=== PATIENT | female | born 2000 | race Caucasian/White ===

== ENCOUNTER 2019-02-26 06:16 | Emergency (ER) | payer SELFPAY ==
[~2019-02-26] VITALS: Ht 172.7 cm; Wt 70.5 kg
[2019-02-26 06:25] VITALS: Ht 172.7 cm; Wt 70.5 kg
[2019-02-26] MEDS ORDERED: LOMOTIL 2.5-0.1 EAC1 PO (06:26)
[2019-02-26] MEDS ORDERED: ORAL CONTRACEPTIVE (06:27)
[2019-02-26 07:29] LABS: BASOPHILS 0.4 % (0-2); EOSINOPHILS 2.5 % (0-7); HEMATOCRIT 31.7 % (36.0-48.0); HEMOGLOBIN 10.3 g/dL (12-16); IMMATURE GRANULOCYTES 0.3 % (0-5); LYMPHOCYTES 31.7 % (15-50); MCH 27.6 pg (26.0-34.0); MCHC 32.5 g/dL (31.0-37.0); MEAN PLATELET VOLUME 9.4 fL (7.4-10.4); NEUTROPHILS 55.1 % (40-80); PLATELET COUNT 339 10x3/uL (130-400); RBC 3.73 10x6/uL (4.00-5.40); RDW 13.3 % (11.5-14.5); WBC 6.8 10x3/uL (4.8-10.8)
[2019-02-26 07:38] LABS: ALBUMIN 2.3 g/dL (3.4-5.0); ALKALINE PHOSPHATASE 72 U/L (46-116); ALT (SGPT) 11 U/L (10-68); BILIRUBIN - TOTAL 0.23 mg/dL (0.2-1.3); CALC OSMOLALITY 276 mosm/kg (275-300); CARBON DIOXIDE 27.3 mmol/L (21.0-32.0); CHLORIDE - SERUM 108 mmol/L (98-107); CREATININE - SERUM 0.8 mg/dL (0.6-1.3); GLUCOSE 100 mg/dL (74-106); POTASSIUM - SERUM 3.9 mmol/L (3.5-5.1); PROTEIN - SERUM 6.6 g/dL (6.4-8.2); SODIUM 140 mmol/L (136-145); UREA NITROGEN 7 mg/dL (7-18); eGFR NON AFRICAN AMERICAN > 90 mL/min (90-120)
[2019-02-26] MEDS ORDERED: ZOFRAN ODT4 MG/UDTAB PO (08:54)
[2019-02-26 11:08] VITALS: BP 108/55
== END 2019-02-26 10:22 | disposition home or self-care (01) ==
LOC: D.ER 06:16
PROVIDERS: Family Medicine
DX: R11.2 Nausea with vomiting, unspecified (principal); R19.7 Diarrhea, unspecified

== ENCOUNTER → 2019-03-24 15:41 | Outpatient (CLI) | payer SELFPAY ==
[2019-02-26 06:25] VITALS: BMI 23.6
[~2019-03-24 15:41] MED LIST: LOMOTIL 2.5-0.1 EAC1 PO; ORAL CONTRACEPTIVE; ZOFRAN ODT4 MG/UDTAB PO
[2019-03-27 19:08] LABS: OVA + PARASITE EXAM Final report (())
== END | disposition home or self-care (01) ==
LOC: D.LAB 15:41
PROVIDERS: ATTEND Family Medicine Adult Medicine
DX: R19.7 Diarrhea, unspecified (principal)

== ENCOUNTER → 2019-04-09 13:03 | Outpatient (CLI) | payer BC ==
[2019-02-26 06:25] VITALS: BMI 23.6
== END | disposition home or self-care (01) ==
LOC: D.LAB 13:03
PROVIDERS: ATTEND Family Medicine Adult Medicine
DX: K52.9 Noninfective gastroenteritis and colitis, unspecified (principal); A04.72 Enterocolitis due to Clostridium difficile, not specified as recurrent

== ENCOUNTER 2019-05-07 15:05 | Emergency (ER) | payer MEDICAID ==
[~2019-05-07] VITALS: Ht 172.7 cm; Wt 72.7 kg
[2019-05-07 15:34] VITALS: Ht 172.7 cm; Wt 72.7 kg
[2019-05-07 15:56] LABS: BASOPHILS 0.1 % (0-2); EOSINOPHILS 1.8 % (0-7); HEMATOCRIT 36.5 % (36.0-48.0); HEMOGLOBIN 11.7 g/dL (12-16); IMMATURE GRANULOCYTES 0.1 % (0-5); LYMPHOCYTES 20.6 % (15-50); MCH 28.5 pg (26.0-34.0); MCHC 32.1 g/dL (31.0-37.0); MEAN PLATELET VOLUME 9.3 fL (7.4-10.4); MONOCYTES 8.4 % (2-11); PLATELET COUNT 377 10x3/uL (130-400); RDW 14.6 % (11.5-14.5); WBC 8.7 10x3/uL (4.8-10.8)
[2019-05-07 16:06] LABS: CALC OSMOLALITY 274 mosm/kg (275-300); CHLORIDE - SERUM 105 mmol/L (98-107); CREATININE - SERUM 0.7 mg/dL (0.6-1.3); GLUCOSE 93 mg/dL (74-106); HCG URINE NEGATIVE (NEGATIVE); POTASSIUM - SERUM 3.5 mmol/L (3.5-5.1); SODIUM 138 mmol/L (136-145); UREA NITROGEN 9 mg/dL (7-18); eGFR NON AFRICAN AMERICAN > 90 mL/min (90-120)
[2019-05-07 16:12] LABS: ALBUMIN 3.1 g/dL (3.4-5.0); ALKALINE PHOSPHATASE 89 U/L (46-116); ALT (SGPT) 19 U/L (10-68); BILIRUBIN - TOTAL 0.24 mg/dL (0.2-1.3); PROTEIN - SERUM 8.3 g/dL (6.4-8.2)
[2019-05-07 16:14] LABS: APPEARANCE CLEAR (CLEAR); BILIRUBIN NEGATIVE (NEGATIVE); COLOR YELLOW (YELLOW); EPITHELIAL CELLS 0-5 /hpf (0-5); GLUCOSE NEGATIVE (NEGATIVE); KETONE NEGATIVE (NEGATIVE); NITRITE NEGATIVE (NEGATIVE); PROTEIN NEGATIVE (NEGATIVE); RED CELLS - URINE 0-5 /hpf (0-5); SPECIFIC GRAVITY 1.015 (1.005-1.020); UROBILINOGEN NORMAL (NORMAL); WHITE CELLS - URINE 0-5 /hpf (NEGATIVE)
[2019-05-07 16:15] LABS: BACTERIA MODERATE /hpf (NEGATIVE)
[2019-05-07 20:29] VITALS: BP 100/63
== END 2019-05-07 20:51 | disposition home or self-care (01) ==
LOC: D.ER 15:05
PROVIDERS: Family Medicine
DX: R10.9 Unspecified abdominal pain (principal)

== ENCOUNTER → 2019-09-08 11:33 | Outpatient (CLI) | payer MEDICAID ==
[2019-05-07 15:34] VITALS: BMI 24.3
[2019-09-08 11:56] LABS: BASOPHILS 0.2 % (0-2); EOSINOPHILS 1.5 % (0-7); HEMOGLOBIN 12.3 g/dL (12-16); LYMPHOCYTES 20.3 % (15-50); MCH 28.3 pg (26.0-34.0); MCHC 31.5 g/dL (31.0-37.0); MCV 89.7 fL (80.0-100.0); MONOCYTES 6.7 % (2-11); NEUTROPHILS 71.3 % (40-80); PLATELET COUNT 374 10x3/uL (130-400); RBC 4.35 10x6/uL (4.00-5.40); RDW 13.3 % (11.5-14.5)
== END | disposition home or self-care (01) ==
LOC: D.LAB 11:33
PROVIDERS: ATTEND Family Medicine Adult Medicine
DX: K52.9 Noninfective gastroenteritis and colitis, unspecified (principal)

== ENCOUNTER 2020-01-14 05:56 | Emergency (ER) | payer MEDICAID ==
[~2020-01-14] VITALS: Ht 172.7 cm; Wt 71.4 kg
[2020-01-14 06:07] VITALS: Ht 172.7 cm; Wt 71.4 kg
[2020-01-14] MEDS ORDERED: PREDNISONE10 MG PO (06:12)
[2020-01-14] MEDS ORDERED: APRISO0.375 GM PO (06:12)
[2020-01-14 08:01] LABS: BASOPHILS 0.1 % (0-2); EOSINOPHILS 0.1 % (0-7); HEMATOCRIT 37.6 % (36.0-48.0); HEMOGLOBIN 12.1 g/dL (12-16); IMMATURE GRANULOCYTES 0.1 % (0-5); LYMPHOCYTES 18.7 % (15-50); MCH 28.6 pg (26.0-34.0); MCHC 32.2 g/dL (31.0-37.0); MCV 88.9 fL (80.0-100.0); MEAN PLATELET VOLUME 9.1 fL (7.4-10.4); MONOCYTES 8.7 % (2-11); NEUTROPHILS 72.3 % (40-80); RBC 4.23 10x6/uL (4.00-5.40); RDW 13.2 % (11.5-14.5); WBC 8.9 10x3/uL (4.8-10.8)
[2020-01-14 08:05] LABS: PLATELET COUNT 275 10x3/uL (130-400)
[2020-01-14 08:09] LABS: BILIRUBIN NEGATIVE (NEGATIVE); GLUCOSE NEGATIVE (NEGATIVE); KETONE LARGE mg/dL (NEGATIVE); NITRITE NEGATIVE (NEGATIVE); UROBILINOGEN NORMAL (NORMAL)
[2020-01-14 08:11] LABS: BACTERIA FEW /hpf (NEGATIVE); RED CELLS - URINE 0-5 /hpf (0-5); WHITE CELLS - URINE 0-5 /hpf (NEGATIVE)
[2020-01-14 08:14] LABS: CALC OSMOLALITY 270 mosm/kg (275-300); CALCIUM 8.5 mg/dL (8.5-10.1); CARBON DIOXIDE 23.4 mmol/L (21.0-32.0); CHLORIDE - SERUM 101 mmol/L (98-107); GLUCOSE 78 mg/dL (74-106); POTASSIUM - SERUM 3.7 mmol/L (3.5-5.1); SODIUM 137 mmol/L (136-145); UREA NITROGEN 8 mg/dL (7-18); eGFR NON AFRICAN AMERICAN 75 mL/min (90-120)
[2020-01-14 08:18] LABS: ALKALINE PHOSPHATASE 51 U/L (30-120); ALT (SGPT) 17 U/L (10-68); BILIRUBIN - TOTAL 0.49 mg/dL (0.2-1.3); PROTEIN - SERUM 6.9 g/dL (6.4-8.2)
[2020-01-14 10:41] VITALS: BP 122/81
== END 2020-01-14 11:34 | disposition other institution (70) ==
LOC: D.ER 05:56
PROVIDERS: Family Medicine
DX: K63.1 Perforation of intestine (nontraumatic) (principal); E86.0 Dehydration; Z98.890 Other specified postprocedural states; R50.9 Fever, unspecified